=== PATIENT | female | born 1995 | race Two or more races ===

== ENCOUNTER 2017-08-13 10:58 | Outpatient (CLI) | payer OTHER | END 2017-08-13 11:03 | disposition home or self-care (01) | LOC: MAMO-SONO 10:58 | DX: N64.89 Other specified disorders of breast (principal) ==

== ENCOUNTER → 2017-08-22 | Day surgery (SDC) | payer OTHER | END | disposition home or self-care (01) | LOC: CIR.AMB 06:38 | DX: D24.2 Benign neoplasm of left breast (principal) ==